=== PATIENT | female | born 1955 ===

== ENCOUNTER 2021-01-02 13:59 | Outpatient (CLI) | payer MEDICARE, OTHER ==
--- NOTE | 2021-01-02 15:37 | XRAY Report ---
PROCEDURE: Cervical Spine 2 View INDICATIONS: NECK PAIN, ACUTE TECHNIQUE: 2 view(s) of the cervical spine were acquired. COMPARISON: None. FINDINGS: Bones: No fractures or dislocations to the C7 level. The lateral masses of C1 appear intact on the odontoid view. No suspicious bony lesions. There is moderate degenerative disc disease at C5-C6 and C6-C7. Moderate bilateral facet arthropathy at multiple levels. Soft tissues: No prevertebral soft tissue swelling. IMPRESSION: 1. Moderate degenerative disc disease at C5-C6 and C6-C7. 2. Moderate bilateral facet arthropathy. Reviewed by: Trey Dsouza MD on 01/02/2021 3:36 PM PDT Approved by: Trey Dsouza MD on 01/02/2021 3:36 PM PDT Station ID: [id number]
--- NOTE | 2021-01-02 16:32 | XRAY Report ---
PROCEDURE: Facial Bones Complete INDICATIONS: INJURY OF FACIAL NERVE, RIGHT SIDE TECHNIQUE: 5 views of the facial bones were acquired. COMPARISON: None. FINDINGS: Sinuses: Visualized sinuses demonstrate no air-fluid levels or mucosal thickening. Bones: No acute displaced fractures. No suspicious bony lesions. Orbital rims and zygomatic arches appear intact. Soft tissues: No suspicious soft tissue densities. IMPRESSION: No acute displaced facial fracture identified. However, radiographs are relatively insensitive for fa cial fractures and CT may be obtained if there is continued clinical concern for an acute fracture. Reviewed by: Pipe Patel MD on 01/02/2021 4:31 PM PDT Approved by: Pipe Patel MD on 01/02/2021 4:31 PM PDT Station ID: [id number]
== END 2021-01-02 23:59 | disposition home or self-care (01) ==
LOC: DI.N 13:59
PROVIDERS: ATTEND Family Medicine
DX: S04.51XA Injury of facial nerve, right side, initial encounter (principal); M50.322 Other cervical disc degeneration at C5-C6 level; M47.812 Spondylosis without myelopathy or radiculopathy, cervical region